=== PATIENT | female | born 1935 | race Caucasian/White ===

== ENCOUNTER 2023-06-21 12:56 | Emergency (ER) | payer MEDICARE, BC, SELFPAY ==
[2023-06-21 12:59] VITALS: BP 107/62
--- NOTE | 2023-06-21 14:00 | ED.GENMED ---
History of Present Illness
<Leigha Bhatti PA-C - Last Filed: 06/22/23 11:09>
General
Chief Complaint: Fall
Source: patient
Exam Limitations: none
Time Seen by Provider: 06/21/23 13:09
Nursing documentation reviewed up to this point in time: agreed with
Travel History
Have you had any contact with someone who has COVID-19?: Unable to Answer
Do you have any symptoms of coronavirus? Fever > 100 degrees, chills, cough, shortness of breath, sore throat, loss of taste or smell, muscle aches, or headache?: Unable to Answer
History of Present Illness
History of Present Illness:
Patient is an 88-year-old with dementia presenting via EMS from facility following unwitnessed fall earlier today. Patient is unable to contribute to her own history due to dementia.
Called and spoke to facility. They state that she was found down next her bed and presumed that she fell out of bed earlier today. She was on the ground for no more than 15 minutes. They are unsure if she hit her head.
Patient has no complaints currently. She does not take any blood thinners.
Phy Exam
<Leigha Bhatti PA-C - Last Filed: 06/22/23 11:09>
Physical Exam
Physical Exam:
General: In no apparent distress non-toxic
Vitals: Vital signs stable, afebrile
HEENT: Atraumatic, normocephalic; pupils equal round reactive light bilaterally, no tenderness surrounding orbits or nasal bridge, protecting airway
Neck: appears supple, no cervical spine or midline spinal tenderness
CV: Regular rate and rhythm, heart sounds normal, no evidence of cyanosis
Resp: No evidence of respiratory distress
Abd: Soft, nontender in all 4 quadrants, non-distended; no bruising
Extremities: No deformities, no evidence of cyanosis or edema; some mild tenderness with flexion of right wrist without any obvious deformity, bruising, or swelling; full passive range of motion in upper and lower extremities, no tenderness with
internal/external rotation of hips, no bony tenderness in upper or lower extremities
Neuro: alert and oriented x 1 to person, not place or time; speech normal; neurologic exam very limited due to dementia, unable to follow commands
Psych: Normal affect, not agitated
Skin: Intact, no rash
Course
<Leigha Bhatti PA-C - Last Filed: 06/22/23 11:09>
Orders/Labs/Results
Orders:
Orders
06/21/23 14:21
Wrist, Right 3 Views [CR Wrist - Right Min 3 Views] Urgent
Comment:
Reason For Exam: fall, pain in right wrist
06/21/23 14:23
CT Head W/o Iv Contrast Urgent
Comment:
Reason For Exam: unwitnessed fall
06/21/23 14:24
CT Cervical Spine W/o Iv Contr Urgent
Comment:
Reason For Exam: unwitnessed fall
Vital Signs
Initial and Last Documented VS:
Initial Vital Signs
Temp Pulse Resp BP Pulse Ox
97.5 F 98 16 107/62 98
06/21/23 12:59 06/21/23 12:59 06/21/23 12:59 06/21/23 12:59 06/21/23 12:59
Last Documented Vital Signs
Temp Pulse Resp BP Pulse Ox
97.5 F 98 16 107/62 98
06/21/23 12:59 06/21/23 12:59 06/21/23 12:59 06/21/23 12:59 06/21/23 12:59
<Huy Basilio DO - Last Filed: 06/22/23 14:46>
Orders/Labs/Results
Orders:
Orders
06/21/23 14:21
Wrist, Right 3 Views [CR Wrist - Right Min 3 Views] Urgent
Comment:
Reason For Exam: fall, pain in right wrist
06/21/23 14:23
CT Head W/o Iv Contrast Urgent
Comment:
Reason For Exam: unwitnessed fall
06/21/23 14:24
CT Cervical Spine W/o Iv Contr Urgent
Comment:
Reason For Exam: unwitnessed fall
Vital Signs
Initial and Last Documented VS:
Initial Vital Signs
Temp Pulse Resp BP Pulse Ox
97.5 F 98 16 107/62 98
06/21/23 12:59 06/21/23 12:59 06/21/23 12:59 06/21/23 12:59 06/21/23 12:59
Last Documented Vital Signs
Temp Pulse Resp BP Pulse Ox
97.5 F 98 16 107/62 98
06/21/23 12:59 06/21/23 12:59 06/21/23 12:59 06/21/23 12:59 06/21/23 12:59
<Leigha Bhatti PA-C - Last Filed: 06/22/23 11:09>
MDM/Problems Addressed
Differential Diagnosis Includes:
Concussion, neck sprain, doubt fracture or intraparenchymal hemorrhage
MDM/Problems Addressed:
Patient is an 88-year-old female with dementia presenting from facility for unwitnessed fall earlier today. Unsure if there is any head strike or loss of consciousness. Patient with severe dementia�unable to contribute to history. Patient not on
any blood thinners. Vital signs stable on arrival. Physical exam as document above. She has no obvious signs of trauma. No cervical spine or midline spinal tenderness. She is moving all extremities spontaneously. No focal neurologic deficits
on exam, although neuro exam somewhat limited due to patient's mental status. Suspicion for acute injury low based on patient presentation. Given dementia and unwitnessed fall�will check head CT and CT cervical spine. Will check x-ray of right
wrist given patient does report some very mild pain with flexion.
Imaging studies show no evidence of acute fracture or dislocation. Discussed findings with patient's daughter and granddaughter. She is stable for discharge back to facility. Return precautions discussed.
Chronic conditions affecting care:
Dementia
Acute Exacerbation and/or Progression of Chronic Illness:
N/A
<Leigha Bhatti PA-C - Last Filed: 06/22/23 11:09>
*Radiology
Radiology exam reviewed: preliminary read by ED provider and radiology read reviewed
*Pulse Oximetry
Patient hypoxic: no
*Consumer Safety Officer Interpretation
Rate: Consumer Safety Officer- N/A
*Critical Care Note
Total Time (30-74mins, 75-104mins- exclusive of procedures): Not Applicable
Data Reviewed
Source: patient, family and [facility]
<Leigha Bhatti PA-C - Last Filed: 06/22/23 11:09>
Patient Management
Discussion with other providers: prison staff
ED Attending Note
<Leigha Bhatti PA-C - Last Filed: 06/22/23 11:09>
-
Portions of this chart may have been created with voice recognition software.� Occasional wrong word or��sound alike� substitutions may have occurred due to the inherent limitations of voice recognition software.
<Huy Basilio DO - Last Filed: 06/22/23 14:46>
ED Attending Note
Patient seen and examined by attending physician: Yes
I performed the substantive portion of visit, reviewed & personally made and approve the management plan that is documented in note by myself or GERBER.: Yes
ED Attending Note:
88yo with dementia presents for evaluation after found down. daughter states that she seems to be herself and no complaints. no obvious injuries. exam: head atraumatic, nonfocal motor exam. no resp distress. A/P: CT neg. no apparent fractures.
daughter to consider hospice due to dementia and falls. d/c to facility
Discharge Plan
Departure
Patient Disposition: Alf/SNF
Date of Disposition: 06/21/23
Time of Disposition: 16:18
Patient with high blood pressure during this ER visit?: No
Condition: Good
Covid-19: Not Applicable
Discharge Problem:
Fall
Referrals:
UNKNOWN,NO INTERVIEW [Family Provider] -
Activity Restrictions/Additional Instructions:
- Return to the emergency department with any severe headache, severe neck pain, altered mental status, numbness or tingling in lower extremities, worsening current symptoms, or any other concerns
-You should follow-up with your primary care provider for further evaluation/management and for review of medications
Interventions
Interventions:
*Risk Screen - Suicide Last Done: 06/21/23 12:59
*General Assessment Last Done: 06/21/23 12:59
*Neglect/Abuse Screening Last Done: 06/21/23 12:59
*ED COVID-19 Vaccine History Last Done: 06/21/23 12:59
*Nursing Disposition Last Done: 06/21/23 16:41
ED-Musculoskeletal Assessment Last Done: 06/21/23 13:07
ED- Neurological Assessment Last Done: 06/21/23 13:07
ED-Skin Assessment Last Done: 06/21/23 13:07
Discharge Date and Time
Discharge Date/Time: 06/21/23 16:42
== END 2023-06-21 16:42 ==
LOC: EMR 12:56
PROVIDERS: EMERGENCY PHYSICIAN Emergency Medicine
DX: Z04.3 Encounter for examination and observation following other accident (principal); M25.531 Pain in right wrist; F03.90 Unspecified dementia, unspecified severity, without behavioral disturbance, psychotic disturbance, mood disturbance, and anxiety; W19.XXXA Unspecified fall, initial encounter
CPT/HCPCS: 99284; 70450; 72125; 73110